=== PATIENT | female | born 1995 | race Caucasian/White ===

== ENCOUNTER 2025-02-23 22:47 | Inpatient (IN) | payer OTHER ==
[~2025-02-23] VITALS: Ht 157.5 cm; Wt 74.4 kg
[2025-02-23] MEDS: SODIUM CHLORIDE 0.9% 1,000 ML IV ONE ×2 (23:00)
[2025-02-23 23:38] LABS: BASOPHILS % 0.2 % (0.0-2.0); HEMATOCRIT. 39.3 % (36.0-48.0); HEMOGLOBIN. 13.2 g/dL (12.0-16.0); LYMPHOCYTES % 15.5 % (20.0-50.0); MEAN CORPUSCULAR HEMOGLOBIN 31.7 pg (28.0-32.0); MEAN CORPUSCULAR HGB CONC 33.6 g/dL (31.0-37.0); MEAN CORPUSCULAR VOLUME 94.4 fL (81.0-99.0); MEAN PLATELET VOLUME 7.4 fl (7.4-10.4); NEUTROPHILS % 77.3 % (40.0-76.0); PLATELET 323 x1000/uL (130-400); RED BLOOD CELL COUNT 4.16 mill/uL (4.2-5.4); RED CELL DISTRIBUTION WIDTH 14.1 % (11.6-14.6); WHITE BLOOD COUNT 12.1 x1000/uL (4.5-11.0)
[2025-02-23 23:39] LABS: CHLORIDE 113 mEq/L (98-107); SODIUM 144 mEq/L (136-145)
[2025-02-23 23:40] LABS: CALCIUM 9.5 mg/dL (8.7-10.4); CARBON DIOXIDE 16 mEq/L (21-32)
[2025-02-23 23:45] LABS: CREATININE 1.9 mg/dL (0.6-1.0); ETHANOL BLOOD < 10 mg/dL (<10); GLUCOSE 93 mg/dL (70-105); UREA NITROGEN BLOOD 21 mg/dL (9-23)
[2025-02-23 23:47] LABS: ALANINE AMINOTRANSFERASE 17 IU/L (10-49); ALBUMIN 4.6 g/dL (3.2-4.8); ASPARTATE AMINOTRANSFERASE 30 IU/L (<34); BILIRUBIN DIRECT 0.1 mg/dL (<=3.0); BILIRUBIN TOTAL 0.4 mg/dL (0.1-1.0); CREATINE KINASE 300 IU/L (34-145)
[2025-02-23 23:50] LABS: PARTIAL THROMBOPLASTIN TIME 21.1 sec (23.4-31.0); PROTHROMBIN TIME 11.1 sec (9.6-11.0)
[2025-02-23 23:51] LABS: HCG SCREEN NEGATIVE
[2025-02-24] VITALS (38 sets, daily range): BP systolic 91–122; BP diastolic 63–84; PULSE 57–87; RESP 12–25; TEMP 36.2–36.7; O2SAT 98–100
[2025-02-24 00:02] LABS: TROPONIN I HIGH SENSITIVITY 121 ng/L (3.0-34)
[2025-02-24 00:48] LABS: BG BASE EXCESS -10.1 mmol/L (-2.0-3.0); BG CARBOXYHEMOGLOBIN 0.3 % (0.5-1.5); BG DEOXYHEMOGLOBIN 3.6 % (0.0-5.0); BG FRACTION INSPIRED OXYGEN 21; BG HCO3 ACT 14.6 mmol/L (21.0-28.0); BG METHEMOGLOBIN 0.1 % (0.5-1.5); BG OXYGEN SATURATION 96.4 % (94.0-98.0); BG PH 7.319 (7.350-7.450); BG PO2 101.1 mmHg (83.0-108.0); BG SAMPLE SITE RIGHT RADIAL; BG VENT MODE ROOM AIR
[2025-02-24] MEDS ORDERED: ONDANSETRON HCL 4MG/2ML INJ IV PRN (03:45)
[2025-02-24] MEDS ORDERED: CLONIDINE 0.1MG TABLET PO PRN (03:45)
[2025-02-24] MEDS ORDERED: GUAIFENESIN 200MG/10ML SUGAR FREE UDC PO PRN (03:45)
[2025-02-24] MEDS ORDERED: ACETAMINOPHEN 325MG TABLET PO PRN ×2 (03:45)
[2025-02-24] MEDS ORDERED: IPRATROPIUM/ALBUTEROL 0.5-3(2.5)MG/3ML NEB HHN PRN (03:45)
[2025-02-24] MEDS ORDERED: DOCUSATE SODIUM 100MG CAPSULE PO PRN (03:45)
[2025-02-24 04:29] LABS: HEMATOCRIT. 40.5 % (36.0-48.0); HEMOGLOBIN. 13.2 g/dL (12.0-16.0); MEAN CORPUSCULAR HEMOGLOBIN 31.2 pg (28.0-32.0); MEAN CORPUSCULAR HGB CONC 32.7 g/dL (31.0-37.0); MEAN CORPUSCULAR VOLUME 95.3 fL (81.0-99.0); MEAN PLATELET VOLUME 7.5 fl (7.4-10.4); PLATELET 230 x1000/uL (130-400); RED BLOOD CELL COUNT 4.25 mill/uL (4.2-5.4); RED CELL DISTRIBUTION WIDTH 14.2 % (11.6-14.6); WHITE BLOOD COUNT 13.8 x1000/uL (4.5-11.0)
[2025-02-24 04:36] LABS: DIFFERENTIAL COMMENT 1
[2025-02-24 04:44] LABS: D-DIMER 1.62 mg/L FEU (<0.50); INR 1.1; PROTHROMBIN TIME 11.7 sec (9.6-11.0)
[2025-02-24 04:46] LABS: CHLORIDE 115 mEq/L (98-107); POTASSIUM 3.4 mEq/L (3.5-5.1); SODIUM 144 mEq/L (136-145)
[2025-02-24 04:47] LABS: CALCIUM 9.1 mg/dL (8.7-10.4); CARBON DIOXIDE 20 mEq/L (21-32)
[2025-02-24 04:52] LABS: CREATININE 1.2 mg/dL (0.6-1.0); GLUCOSE 131 mg/dL (70-105); TRIGLYCERIDE 42 mg/dL (0-150); UREA NITROGEN BLOOD 21 mg/dL (9-23)
[2025-02-24 04:53] LABS: LDL CHOLESTEROL 85 mg/dL (5-100)
[2025-02-24 04:54] LABS: CHOLESTEROL 134 mg/dL (<200); CREATINE KINASE MB FRACTION 40.4 ng/mL (0.5-3.6); HDL CHOLESTEROL 60 mg/dL (>65); PHOSPHORUS 1.8 mg/dL (2.5-4.9)
[2025-02-24 04:57] LABS: T4 FREE 1.43 ng/dL (0.89-1.76); THYROID STIMULATING HORMONE 1.25 uIU/mL (0.55-4.78)
[2025-02-24] MEDS: LACTATED RINGERS 1,000 ML IV SCH (05:33)
[2025-02-24 06:14] LABS: PLATELET ESTIMATE NORMAL
[2025-02-24] MEDS: POTASSIUM CHLORIDE 20MEQ TABLET SR PO SCH (08:50)
[2025-02-24 10:46] LABS: CLARITY URINE TURBID (CLEAR); COLOR URINE YELLOW (YELLOW); GLUCOSE URINE NEGATIVE (NEGATIVE); KETONES URINE 3+ (NEGATIVE); LEUKOCYTE ESTERASE URINE NEGATIVE (NEGATIVE); NITRITE URINE NEGATIVE (NEGATIVE); OCCULT BLOOD URINE 3+ (NEGATIVE); PH URINE 5.5 (4.5-8.0); PROTEIN URINE 2+ (NEGATIVE); SPECIFIC GRAVITY URINE 1.023 (1.005-1.030); UROBILINOGEN URINE 0.2 E.U./dL (0.2-1.0)
[2025-02-24 11:07] LABS: AMORPHOUS SEDIMENT URINE 2+ /lpf; BACTERIA URINE NONE SEEN; FINE GRANULAR CASTS URINE 0-5 /lpf; RBC URINE NONE SEEN /hpf (0-2); WBC URINE NONE SEEN /hpf (0-2)
[2025-02-24 11:10] LABS: URIC ACID CRYSTALS URINE 1+ /lpf
[2025-02-24 12:17] LABS: *AMPHETAMINES SCREEN URINE NEGATIVE (NEGATIVE); *BARBITURATES SCREEN URINE NEGATIVE (NEGATIVE); *BENZODIAZEPINES SCREEN URINE PRESUMPTIVE POSITIVE (NEGATIVE); *COCAINE SCREEN URINE NEGATIVE (NEGATIVE); CANNABINOID URINE SCREEN NEGATIVE (NEGATIVE); METHADONE URINE SCREEN NEGATIVE (NEGATIVE); OPIATES URINE SCREEN NEGATIVE (NEGATIVE); PHENCYCLIDINE URINE SCREEN NEGATIVE (NEGATIVE)
[2025-02-24 12:18] LABS: ECSTASY MDMA SCREEN URINE NEGATIVE (NEGATIVE)
[2025-02-24 18:25] LABS: CREATINE KINASE MB FRACTION 115.7 ng/mL (0.5-3.6)
[2025-02-24 23:55] LABS: CREATINE KINASE 28822 IU/L (34-145)
[2025-02-25 00:04] VITALS: BP 107/62; PULSE 57; RESP 19; TEMP 36.2; O2SAT 99
[2025-02-25 04:04] VITALS: BP 102/61; PULSE 70; RESP 16; TEMP 36.2; O2SAT 99
[2025-02-25 07:06] LABS: CHLORIDE 110 mEq/L (98-107); POTASSIUM 3.7 mEq/L (3.5-5.1); SODIUM 142 mEq/L (136-145)
[2025-02-25 07:07] LABS: BASOPHILS % 0.1 % (0.0-2.0); CALCIUM 8.3 mg/dL (8.7-10.4); CARBON DIOXIDE 21 mEq/L (21-32); HEMATOCRIT. 34.5 % (36.0-48.0); HEMOGLOBIN. 11.7 g/dL (12.0-16.0); MEAN CORPUSCULAR HEMOGLOBIN 32.3 pg (28.0-32.0); MEAN CORPUSCULAR VOLUME 94.8 fL (81.0-99.0); MEAN PLATELET VOLUME 7.8 fl (7.4-10.4); MONOCYTES % 6.6 % (2.0-8.0); NEUTROPHILS % 69.3 % (40.0-76.0); PLATELET 208 x1000/uL (130-400); RED BLOOD CELL COUNT 3.64 mill/uL (4.2-5.4); RED CELL DISTRIBUTION WIDTH 14.5 % (11.6-14.6); WHITE BLOOD COUNT 10.6 x1000/uL (4.5-11.0)
[2025-02-25 07:12] LABS: CREATININE 0.6 mg/dL (0.6-1.0); GLUCOSE 84 mg/dL (70-105); UREA NITROGEN BLOOD 6 mg/dL (9-23)
[2025-02-25 07:14] LABS: PHOSPHORUS 2.8 mg/dL (2.5-4.9)
[2025-02-25 07:34] LABS: CREATINE KINASE 24012 IU/L (34-145)
[2025-02-25 08:00] VITALS: BP 105/57; PULSE 80; RESP 21; TEMP 37.2; O2SAT 99
[2025-02-25 12:00] VITALS: BP 116/79; PULSE 91; RESP 15; TEMP 36.6; O2SAT 100
[2025-02-25 15:20] VITALS: BP 117/77; PULSE 69; TEMP 97.9; O2SAT 96
== END 2025-02-25 16:00 | disposition home or self-care (01) | DRG 815 ==
LOC: ER 22:47 → EDBEDREQ 23:08 → CVICU 02-24 00:45 → EDBEDREQ 02-24 00:55 → ENRESERV 02-24 04:09 → 3WST 02-24 16:18
PROVIDERS: ADMIT Internal Medicine; ATTEND Internal Medicine
DX: T67.02XA Exertional heatstroke, initial encounter (principal); J96.01 Acute respiratory failure with hypoxia; R57.1 Hypovolemic shock; M62.82 Rhabdomyolysis; E87.20 Acidosis, unspecified; E83.39 Other disorders of phosphorus metabolism; E83.41 Hypermagnesemia; N17.9 Acute kidney failure, unspecified; E86.0 Dehydration; E87.6 Hypokalemia; R74.8 Abnormal levels of other serum enzymes; X58.XXXA Exposure to other specified factors, initial encounter; Y93.89 Activity, other specified; Y92.89 Other specified places as the place of occurrence of the external cause; Y99.8 Other external cause status
CPT/HCPCS: 36415; 36600; 71045; 80048; 80061; 80076; 80305; 80320; 81003; 82375; 82550; 82553; 82805; 83036; 83605; 83735; 83880; 84100; 84439; 84443; 84484; 84703; 85025; 85379; 86850; 86900; 93005; 99291; J7030; J7120; G0480